=== PATIENT | female | born 1960 | race Two or more races ===

== ENCOUNTER 2018-06-20 20:04 | Emergency (ER) | payer OTHER ==
[2018-06-20 21:03] VITALS: BP 152/85; PULSE 74; TEMP 98; BMI 42.5
[2018-06-20] MEDS ORDERED: ACETAMINOPHEN 500 MG TABLET (FP) PO ONE (22:22)
[2018-06-20] MEDS ORDERED: ACETAMINOPHEN 500 MG TABLET (FP) ONE (22:25)
--- NOTE | 2018-06-20 22:27 | PDOC ---
History of Present Illness - General Chief Complaint: Blood Pressure Problem Stated Complaint: HYPERTENSION Time Seen by Provider: 06/20/18 22:12 - History of Present Illness Initial Comments: 06/20/18 22:23 57-year-old female presents for evaluation of headache and malaise 3 days. She noticed a redness in her left eye today she went her primary care doctor she was diagnosed with a subconjunctival hemorrhage and told to follow-up with ophthalmology she was also given medicine for hypertension which she did not take. Past History - Past Medical History Allergies/Adverse Reactions: Allergies Allergy/AdvReac Type Severity Reaction Status Date / Time No Known Allergies Allergy Verified 11/04/17 12:44 Home Medications: Ambulatory Orders Acetaminophen [Tylenol] 650 mg PO PRN 06/18/15 Meloxicam [Mobic] 15 mg PO DAILY 30 Days #30 tablet MDD 15mg 06/29/17 Aspirin [ASA -] 81 mg PO PRN 01/10/18 COPD: No HTN: Yes (BORDERLINE) - Surgical History Orthopedic Surgery: Yes (R KNEE REPLACEMENT) - Suicide/Smoking/Psychosocial Hx Smoking History: Never smoked Have you smoked in the past 12 months: No Hx Alcohol Use: No Drug/Substance Use Hx: No Substance Use Type: None Review of Systems - Review of Systems Constitutional: Yes: Malaise HEENTM: No: Blurred Vision, Tearing, Recent change in vision, Double Vision Neurological: Yes: Headache *Physical Exam - Vital Signs Last Vital Signs Temp Pulse Resp BP Pulse Ox 98 F 74 20 152/85 97 06/20/18 20:54 06/20/18 20:54 06/20/18 20:54 06/20/18 20:54 06/20/18 20:54 - Physical Exam Comments: 06/20/18 22:24 HEAD: NC/AT EYES: Conjuntiva clear Ears: Canals and TM's normal NOSE: No d/c THROAT: Moist mucous membrances, oral pharanx clear, uvula midline no tongue deviation or facial asymmetry NECK: Supple without adenopathy CARDIAC: S1 S2 LUNGS: CTA Full and Equal breath sounds ABDOMEN: Soft NT ND MS: Full ROM in all joints without edema no drift NEUROLOGIC: No gross sensory or motor deficits, NVID SKIN: Normal color and temperature no lesions or rashes ED Treatment Course - RADIOLOGY Radiology Studies Ordered: Category Date Time Status HEAD CT WITHOUT CONTRAST [CT] Stat CT Scan 06/20/18 22:22 Ordered Medical Decision Making - Medical Decision Making 06/20/18 22:[address] and treat ARTEAGA with Tylenol. Pt signed out to main ER *DC/Admit/Observation/Transfer Diagnosis at time of Disposition: Headache, Subconjunctival bleed - Referrals Referrals: Anton Maravilla [Primary Care Provider] - - Patient Instructions - Post Discharge Activity
--- NOTE | 2018-06-20 23:24 | PDOC ---
*Physical Exam - Vital Signs Last Vital Signs Temp Pulse Resp BP Pulse Ox 98 F 74 20 152/85 97 06/20/18 20:54 06/20/18 20:54 06/20/18 20:54 06/20/18 20:54 06/20/18 20:54 - Physical Exam General Appearance: Yes: Appropriately Dressed. No: Apparent Distress HEENT: positive: EOMI, TERRY, Other (Left eye subconjunctival hemorrhage) Respiratory/Chest: positive: Lungs Clear, Normal Breath Sounds. 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 Briefly this is a 57-year-old woman was seen by her PMD today for a subconjunctival hemorrhage and headache. Patient was instructed to follow-up with an radio engineer as an outpatient. Patient presented emergency department for second opinion. Patient is pending CAT scan at time of signout. Medical Decision Making - Medical Decision Making 06/20/18 23:22 CT of the head as read by Dr. Segovia: No evidence of acute age cranial pathology. I discussed the physical exam findings, ancillary test results and final diagnoses with the patient. I answered all of the patient's questions. The patient was satisfied with the care received and felt comfortable with the discharge plan and treatment plan. The patient will call their primary care physician within 24 hours to arrange follow-up and will return to the Emergency Department with any new, persistent or worsening symptoms. *DC/Admit/Observation/Transfer Diagnosis at time of Disposition: Headache Qualifiers: Headache type: unspecified Headache chronicity pattern: acute headache Intractability: not intractable Qualified Code(s): R51 - Headache Subconjunctival bleed Qualifiers: Laterality: left Qualified Code(s): H11.32 - Conjunctival hemorrhage, left eye - Discharge Dispostion Disposition: HOME Condition at time of disposition: Fair Decision to Admit order: No - Referrals Referrals: Anton Maravilla [Primary Care Provider] - - Patient Instructions Additional Instructions: Take your Blood Pressure medicine. Take Tylenol or Motrin as needed for headaches. Keep a diary of all food to eat and activities performed prior to headaches starting. Make an appointment with her primary doctor for reevaluation within the next week. Return to emergency department for worsening headache, blurry vision, dizziness , nausea, vomiting or any other concerns. Thank you very much for for choosing us to provide emergent health care needs. [place] lee medicamento para la presin arterial. [place] Tylenol o Motrin segn sea necesario para los andry de amy. Mantenga un diario de todos los alimentos para comer y las actividades realizadas antes de comenzar con los andry de amy. Eb mio harjinder con lee mdico de cabecera para lee reevaluacin dentro de la prxima semana. Regrese al departamento de emergencias para empeorar el dolor de amy, visin borrosa, mareos, nuseas, vmitos o cualquier otra inquietud. Muchas danielle por elegirnos para proporcionar mio necesidad de atencin mdica de emergencia. - Post Discharge Activity
== END 2018-06-20 23:58 | disposition home or self-care (01) ==
LOC: JERFT 20:04 → JER 20:04
DX: R51 Headache (principal); I10 Essential (primary) hypertension; H11.32 Conjunctival hemorrhage, left eye
CPT/HCPCS: 70450-TC; 99281-25

== ENCOUNTER 2021-06-09 14:38 | Emergency (ER) | payer OTHER ==
[2021-06-09 15:00] VITALS: PULSE 82; TEMP 98.1; BMI 44.9
[2021-06-09 15:01] VITALS: BP 141/98
[2021-06-09] MEDS ORDERED: KETOROLAC TROMETHAMINE 30 MG/1 ML VIAL IM ONE (17:07)
[2021-06-09] MEDS ORDERED: KETOROLAC TROMETHAMINE 30 MG/1 ML VIAL ONE (17:11)
== END 2021-06-09 17:58 | disposition home or self-care (01) ==
LOC: JER 14:38
PROC: 3E023GC Introduction of Other Therapeutic Substance into Muscle, Percutaneous Approach (ICD-10-PCS; principal; 2021-06-09)
DX: M25.562 Pain in left knee (principal)
CPT/HCPCS: 73562-TC-LT-FY; 99284-25

== ENCOUNTER 2023-07-21 20:58 | Emergency (ER) | payer OTHER ==
[2023-07-21 21:13] VITALS: BP 144/90; PULSE 75; RESP 18; TEMP 98.5; BMI 43.9
== END 2023-07-21 23:25 | disposition home or self-care (01) ==
LOC: JER 20:58
DX: I83.891 Varicose veins of right lower extremity with other complications (principal); R20.0 Anesthesia of skin
CPT/HCPCS: 93005; 93010; 99283-25